=== PATIENT | male | born 1970 | race Caucasian/White ===

== ENCOUNTER 2021-02-12 07:52 | Inpatient (IN) | payer MEDICARE ==
[~2021-02-12] VITALS: Ht 182.9 cm; Wt 132.7 kg
[2021-02-24] MEDS ORDERED: DEXILANT60 MG PO (14:22)
[2021-02-24] MEDS ORDERED: GLUCOPHAGE500 MG PO (14:22)
[2021-02-24] MEDS ORDERED: BYSTOLIC2.5 MG (14:22)
[2021-02-24] MEDS ORDERED: LYRICA300 MG PO (14:23)
[2021-02-24] MEDS ORDERED: MULTI-DAY VITAM1 TAB PO (14:23)
[2021-02-24] MEDS ORDERED: PROZAC40 MG (14:23)
[2021-02-25 10:24] LABS: BILIRUBIN NEGATIVE (NEGATIVE); KETONE NEGATIVE (NEGATIVE); NITRITE NEGATIVE (NEGATIVE); UROBILINOGEN NORMAL mg/dL (< 2)
[2021-02-25 13:10] LABS: BASOPHILS 0.3 % (0-2); EOSINOPHILS 8.8 % (0-7); HEMATOCRIT 44.2 % (42.0-54.0); HEMOGLOBIN 15.2 g/dL (13.5-17.5); IMMATURE GRANULOCYTES 0.1 % (0-5); LYMPHOCYTE ABS# 1.75 10x3/uL (1.32-3.57); LYMPHOCYTES 26.2 % (15-50); MCH 28.5 pg (26.0-34.0); MCHC 34.4 g/dL (31.0-37.0); MCV 82.9 fL (80.0-100.0); MEAN PLATELET VOLUME 9.8 fL (7.4-10.4); MONOCYTES 7.3 % (2-11); NEUTROPHIL ABS# 3.81 10x3/uL (1.78-5.38); NEUTROPHILS 57.3 % (40-80); PLATELET COUNT 217 10x3/uL (130-400); RBC 5.33 10x6/uL (4.20-6.10); RDW 14.4 % (11.5-14.5); WBC 6.7 10x3/uL (4.8-10.8)
[2021-02-25 13:21] LABS: CALC OSMOLALITY 277 mosm/kg (275-300); CALCIUM 9.3 mg/dL (8.5-10.1); CARBON DIOXIDE 25.9 mmol/L (21.0-32.0); CHLORIDE - SERUM 100 mmol/L (98-107); CREATININE - SERUM 1.1 mg/dL (0.6-1.3); GLUCOSE 164 mg/dL (74-106); POTASSIUM - SERUM 4.4 mmol/L (3.5-5.1); SODIUM 135 mmol/L (136-145); UREA NITROGEN 24 mg/dL (7-18); eGFR NON AFRICAN AMERICAN 75 mL/min (90-120)
[2021-02-25 13:23] LABS: APTT 33.3 SECONDS (22.8-39.4); INR 1.07 (0.85-1.17); PROTIME 12.8 SECONDS (11.6-15.0)
[2021-03-02] VITALS (10 sets, daily range): BP systolic 74–130; BP diastolic 55–93; Ht 182.9 cm; Wt 132.7 kg
[2021-03-02] MEDS ORDERED: CYMBALTA60 MG PO (12:30)
[2021-03-02 14:35] LABS: BASOPHILS 0 % (0-2); EOSINOPHILS 0.7 % (0-7); HEMATOCRIT 38.7 % (42.0-54.0); HEMOGLOBIN 13.1 g/dL (13.5-17.5); IMMATURE GRANULOCYTES 0.4 % (0-5); LYMPHOCYTE ABS# 0.81 10x3/uL (1.32-3.57); LYMPHOCYTES 7.6 % (15-50); MCH 28.3 pg (26.0-34.0); MCHC 33.9 g/dL (31.0-37.0); MCV 83.6 fL (80.0-100.0); MEAN PLATELET VOLUME 9.6 fL (7.4-10.4); MONOCYTES 3.1 % (2-11); NEUTROPHIL ABS# 9.46 10x3/uL (1.78-5.38); NEUTROPHILS 88.2 % (40-80); PLATELET COUNT 207 10x3/uL (130-400); RBC 4.63 10x6/uL (4.20-6.10); RDW 14.7 % (11.5-14.5); WBC 10.7 10x3/uL (4.8-10.8)
[2021-03-02 14:56] LABS: ALBUMIN 3.4 g/dL (3.4-5.0); ANION GAP 11.1 mmol/L (8-16); BILIRUBIN - TOTAL 0.85 mg/dL (0.2-1.3); CALCIUM 7.9 mg/dL (8.5-10.1); CREATININE - SERUM 1.4 mg/dL (0.6-1.3); POTASSIUM - SERUM 5.1 mmol/L (3.5-5.1); PROTEIN - SERUM 6.6 g/dL (6.4-8.2)
--- NOTE | 2021-03-02 17:20 | NUR ---
pt continues to be pain free. bed alarm remains on. oxygen turned down to 1 L per nc. at bedside.
--- NOTE | 2021-03-02 18:55 | NUR ---
PATIENT RESTING IN BED WITH EYES CLOSED AND NO S/S OF DISTRESS. AT BEDSIDE. IV INFUSING TO PATIENT'S RIGHT HAND, NO SIGNS OF INFILTRATION. IRMA AND SCD HOSE IN PLACE. INCISION TO RIGHT HIP WITH DRESSING C/D/I. BED IN LOWEST POSITION AND CALL LIGHT IN REACH. ENCOURAGED PATIENT TO CALL WITH NEEDS.
[2021-03-03 01:06] VITALS: BP 108/61
[2021-03-03 05:23] VITALS: BP 119/61
--- NOTE | 2021-03-03 06:10 | NUR ---
REMOVED PATIENT'S CR CATH
[2021-03-03 06:35] LABS: BASOPHILS 0 % (0-2); EOSINOPHILS 0.5 % (0-7); HEMATOCRIT 33.8 % (42.0-54.0); HEMOGLOBIN 11.3 g/dL (13.5-17.5); IMMATURE GRANULOCYTES 0.4 % (0-5); LYMPHOCYTE ABS# 1.23 10x3/uL (1.32-3.57); LYMPHOCYTES 12.8 % (15-50); MCHC 33.4 g/dL (31.0-37.0); MCV 83.9 fL (80.0-100.0); MEAN PLATELET VOLUME 9.5 fL (7.4-10.4); MONOCYTES 8.1 % (2-11); NEUTROPHILS 78.2 % (40-80); PLATELET COUNT 222 10x3/uL (130-400); RBC 4.03 10x6/uL (4.20-6.10); WBC 9.6 10x3/uL (4.8-10.8)
[2021-03-03 06:48] LABS: ANION GAP 11.9 mmol/L (8-16); BILIRUBIN - TOTAL 0.32 mg/dL (0.2-1.3); CARBON DIOXIDE 25.3 mmol/L (21.0-32.0); CREATININE - SERUM 1.2 mg/dL (0.6-1.3); POTASSIUM - SERUM 4.2 mmol/L (3.5-5.1)
[2021-03-03 07:15] VITALS: BP 103/64
--- NOTE | 2021-03-03 07:30 | NUR ---
PT ASSESSED. NO COMPLAINTS OF PAIN AT PRESENT. STATES LITTLE BIT OF STINGING BUT NO PAIN. ENCOURAGED PT TO NOT LET PAIN GET OUT OF CONTROL. DRESSING TO LEFT GROIN CLEAN DRY AND INTACT WITH KATH DRAIN NOTED AND COMPLRESSED. BILAT IRMA HOSE AND SCDS ON. FALL ALARM ON. IV RIGHT HAND WITHOUT REDDNESS OR SWELLING NOTED. SPPOUSE AT BEDSIDE. CALL LIGHT IN REACH
--- NOTE | 2021-03-03 10:03 | NUR ---
pt ambulated in hallway and completed stairs with therapy. up in recliner at bedside with chair alarm on. refusing pain medication and ice at moment. states no pain. call light in reach
[2021-03-03 12:00] VITALS: BP 114/66
--- NOTE | 2021-03-03 13:21 | MORECARE ---
CASE MANAGEMENT DISCHARGE SUMMARY PATIENT: SWATI GANDARA UNIT: [id number] ADM DATE: 03/02/21 AGE: 50 : 68 SEX: M ROOM/BED: D.1211 AUTHOR: SIMA,DOC PHYSICIAN: REFERRING PHYSICIAN: ELISA ALVARENGA MD DATE OF SERVICE: 03/03/21 Case Management Discharge Planning Summary DCP REVIEW SUMMARY ANTICIPATED D/C DATE: 03/03/2021 EXPECTED LOS : 1 CASE STATUS: DCP Initiated INITIAL REVIEW: 03/02/2021 INITIAL REVIEWER: Lv Garcia FINAL DISCHARGE DISPOSITION: : FINAL REVIEWER: FINAL REVIEW DATE: DCP Focus Questions & Answers QUESTION: ANSWER : PATIENT: SWATI GANDARA ENCOUNTER: [id number] MEDICAL RECORD#: [id number] ADMISSION DATE: 03/02/2021 DISCHARGE DATE: ATTENDING MD: : AGE: 50 MARITAL STATUS: M DC PLAN ID: [id number] FACILITY: [facility] PRINTED ON: 03/03/21 13:21 CT All edits/amendments must be made on the electronic document DICTATION DATE: 03/03/21 132 GAUGER CHIEF: DM 03/03/21 1321 RPT#: [id number] DC DATE: STATUS: ADM IN [facility] [address] [place] [address] END OF REPORT
--- NOTE | 2021-03-03 13:58 | MORECARE ---
CASE MANAGEMENT DISCHARGE SUMMARY PATIENT: SWATI KASPER UNIT: [id number] ADM DATE: 03/02/21 AGE: 50 : 68 SEX: M ROOM/BED: D.1211 AUTHOR: SIMADOC PHYSICIAN: REFERRING PHYSICIAN: ELISA ALVARENGA MD DATE OF SERVICE: 03/03/21 Case Management Discharge Planning Summary COMMENTS ENTERED DATE: 03/03/21 13:45 CT COMMENT TYPE: Discharge Planning REVIEWER: Lv Garcia CM met with patient to complete DC plan and to evaluate needs. Patient lives independently with his spouse, Breanna Kasper, . Patient stated that his home is safe and has electricity and running water. Patient stated that he has no problems paying for medications and he fills his medications at [facility] in [place], [place]. Patient stated that his primary care physician is Dr. Aurelia Randhawa in the [facility]. At discharge, the patient plans to return home and feels this is a safe discharge. CM discussed availability of home health, rehab services, and medical equipment. Patient declined SNF, IPR, and DME. Patient has walker present in his room. Patient stated that he has a shower chair and BSC at home. Patient would like [facility] services, with [employer]. FABIANA signed and placed in chart. CM spoke with Za of [employer]. ZA stated that SOC can be determined once Clinical Documents are received. Clincal Documents faxed to . Patient voiced no other needs at this time and is satisfied with DC plan. Transportation provider at discharge will be with his spouse, Breanna. DC IMM delivered, explained, signed by the patient, and placed in chart. Signed form also left with the patient. CM will continue to follow and will assist as needed with dc plans/needs. DCP REVIEW SUMMARY ANTICIPATED D/C DATE: 03/03/2021 EXPECTED LOS : 1 CASE STATUS: DCP Initiated INITIAL REVIEW: 03/02/2021 INITIAL REVIEWER: Lv Garcia FINAL DISCHARGE DISPOSITION: : FINAL REVIEWER: FINAL REVIEW DATE: DCP Focus Questions & Answers DCP Evaluation QUESTION: ANSWER Patient and/or caregiver agree upon recommended discharge plan? : Yes Family / Caregiver's ability to cope with chronic illness: : a. Adequate (ability to meet patient's medical needs, ensures patient attends medical appts.) Patient's current cognitive status: : *Oriented to person, place, situation, time and present Patient's ability to cope with chronic illness : d. No chronic illness Patient gives permission to discuss discharge plans with: (name, relationship and number) : spouse, Breanna Kasper, Does the patient have the ability to pay for or attain post discharge needs / services? : Yes Functional screen assessment: : Basic needs can adequately be met by self Family / Caregiver's ability to cope with chronic illness: : a. Adequate (ability to meet patient's medical needs, ensures patient attends medical appts.) Physical Status: : Independent with ADL's Equipment needed for post hospitalization: : None Is there a likelihood that the patient will require additional services to return to the preadmission environment? : No Living Arrangements: : Home with Spouse/Significant Other Patient with capacity for self-care or can be cared for in same environment as prior to hospitalization? : Yes Baseline cognitive status: : *Oriented to person, place, situation, time and present Medication Management: : Patient states can read and understand medication labels Medication Management: : Patient states can afford medications Pharmacy name(s): : [facility] in [place], [place] Does Patient have transportation to get home and to follow-up medical appointments when discharged from the hospital? : Yes Would patient like to participate in any Care Coordination programs (if applicable): : Not applicable Does the patient have electricity at home? : Yes Does the patient have running water in their house? : Yes Equipment in use: : Walker - Rolling Equipment in use: : Shower Chair Equipment in use: : Bedside Commode Mental health screen: : No mental health history DCP Re-evaluation QUESTION: ANSWER Would patient like to participate in any Care Coordination programs (if applicable): : Not applicable PATIENT: SWATI KASPER ENCOUNTER: [id number] MEDICAL RECORD#: [id number] ADMISSION DATE: 03/02/2021 DISCHARGE DATE: ATTENDING MD: SUMI: AGE: 50 MARITAL STATUS: M DC PLAN ID: [id number] FACILITY: [facility] PRINTED ON: 03/03/21 13:58 CT All edits/amendments must be made on the electronic document DICTATION DATE: 03/03/211357 COMMUNITY COORDINATOR FOR HIGH SCHOOL: TENNILLE 03/03/21 135 RPT#: [id number] DC DATE: STATUS: ADM IN [facility] [address] [place] [address] END OF REPORT
[2021-03-03] MEDS ORDERED: PERCOCET 5-3251 TAB PO (15:10)
[2021-03-03] MEDS ORDERED: ELIQUIS2.5 MG PO (15:11)
--- NOTE | 2021-03-03 16:23 | MORECARE ---
CASE MANAGEMENT DISCHARGE SUMMARY PATIENT: SWATI KASPER UNIT: [id number] ADM DATE: 03/02/21 AGE: 50 : 68 SEX: M ROOM/BED: D.1211 AUTHOR: SIMADOC PHYSICIAN: REFERRING PHYSICIAN: ELISA ALVARENGA MD DATE OF SERVICE: 03/03/21 Case Management Discharge Planning Summary COMMENTS ENTERED DATE: 03/03/21 13:45 CT COMMENT TYPE: Discharge Planning REVIEWER: Lv Garcia CM met with patient to complete DC plan and to evaluate needs. Patient lives independently with his spouse, Breanna Kasper, . Patient stated that his home is safe and has electricity and running water. Patient stated that he has no problems paying for medications and he fills his medications at [facility] in [place], [place]. Patient stated that his primary care physician is Dr. Aurelia Randhawa in the [facility]. At discharge, the patient plans to return home and feels this is a safe discharge. CM discussed availability of home health, rehab services, and medical equipment. Patient declined SNF, IPR, and DME. Patient has walker present in his room. Patient stated that he has a shower chair and BSC at home. Patient would like [facility] services, with [employer]. FABIANA signed and placed in chart. CM spoke with Za of [employer]. ZA stated that SOC can be determined once Clinical Documents are received. Clincal Documents faxed to . Patient voiced no other needs at this time and is satisfied with DC plan. Transportation provider at discharge will be with his spouse, Breanna. DC IMM delivered, explained, signed by the patient, and placed in chart. Signed form also left with the patient. CM will continue to follow and will assist as needed with dc plans/needs. DCP REVIEW SUMMARY ANTICIPATED D/C DATE: 03/03/2021 EXPECTED LOS : 1 CASE STATUS: DCP Initiated INITIAL REVIEW: 03/02/2021 INITIAL REVIEWER: Lv Garcia FINAL DISCHARGE DISPOSITION: : FINAL REVIEWER: FINAL REVIEW DATE: DCP Focus Questions & Answers DCP Evaluation QUESTION: ANSWER Patient and/or caregiver agree upon recommended discharge plan? : Yes Family / Caregiver's ability to cope with chronic illness: : a. Adequate (ability to meet patient's medical needs, ensures patient attends medical appts.) Patient's current cognitive status: : *Oriented to person, place, situation, time and present Patient's ability to cope with chronic illness : d. No chronic illness Patient gives permission to discuss discharge plans with: (name, relationship and number) : spouse, Breanna Kasper, Does the patient have the ability to pay for or attain post discharge needs / services? : Yes Functional screen assessment: : Basic needs can adequately be met by self Family / Caregiver's ability to cope with chronic illness: : a. Adequate (ability to meet patient's medical needs, ensures patient attends medical appts.) Physical Status: : Independent with ADL's Equipment needed for post hospitalization: : None Is there a likelihood that the patient will require additional services to return to the preadmission environment? : No Living Arrangements: : Home with Spouse/Significant Other Patient with capacity for self-care or can be cared for in same environment as prior to hospitalization? : Yes Baseline cognitive status: : *Oriented to person, place, situation, time and present Medication Management: : Patient states can read and understand medication labels Medication Management: : Patient states can afford medications Pharmacy name(s): : [facility] in [place], [place] Does Patient have transportation to get home and to follow-up medical appointments when discharged from the hospital? : Yes Would patient like to participate in any Care Coordination programs (if applicable): : Not applicable Does the patient have electricity at home? : Yes Does the patient have running water in their house? : Yes Equipment in use: : Walker - Rolling Equipment in use: : Shower Chair Equipment in use: : Bedside Commode Mental health screen: : No mental health history DCP Re-evaluation QUESTION: ANSWER Would patient like to participate in any Care Coordination programs (if applicable): : Not applicable PATIENT: SWATI KASPER ENCOUNTER: [id number] MEDICAL RECORD#: [id number] ADMISSION DATE: 03/02/2021 DISCHARGE DATE: 03/03/2021 ATTENDING MD: SUMI: 1970 AGE: 50 MARITAL STATUS: M DC PLAN ID: [id number] FACILITY: [facility] PRINTED ON: 03/03/21 16:23 CT All edits/amendments must be made on the electronic document DICTATION DATE: 03/03/211622 FIELD CANE SCALER: TENNILLE 03/03/211622 RPT#: [id number] DC DATE:03/03/21 STATUS: DIS IN [facility] [address] [place] [address] END OF REPORT
--- NOTE | 2021-03-03 16:37 | MORECARE ---
CASE MANAGEMENT DISCHARGE SUMMARY PATIENT: SWATI KASPER UNIT: [id number] ADM DATE: 03/02/21 AGE: 50 : 68 SEX: M ROOM/BED: D.1211 AUTHOR: SIMADOC PHYSICIAN: REFERRING PHYSICIAN: ELISA ALVARENGA MD DATE OF SERVICE: 03/03/21 Case Management Discharge Planning Summary COMMENTS ENTERED DATE: 03/03/21 13:45 CT COMMENT TYPE: Discharge Planning REVIEWER: Lv Gacria CM met with patient to complete DC plan and to evaluate needs. Patient lives independently with his spouse, Breanna Kasper, . Patient stated that his home is safe and has electricity and running water. Patient stated that he has no problems paying for medications and he fills his medications at [facility] in [place], [place]. Patient stated that his primary care physician is Dr. Aurelia Randhawa in the [facility]. At discharge, the patient plans to return home and feels this is a safe discharge. CM discussed availability of home health, rehab services, and medical equipment. Patient declined SNF, IPR, and DME. Patient has walker present in his room. Patient stated that he has a shower chair and BSC at home. Patient would like [facility] services, with [employer]. FABIANA signed and placed in chart. CM spoke with Za of [employer]. ZA stated that SOC can be determined once Clinical Documents are received. Clincal Documents faxed to . Patient voiced no other needs at this time and is satisfied with DC plan. Transportation provider at discharge will be with his spouse, Breanna. DC IMM delivered, explained, signed by the patient, and placed in chart. Signed form also left with the patient. CM will continue to follow and will assist as needed with dc plans/needs. DCP REVIEW SUMMARY ANTICIPATED D/C DATE: 03/03/2021 EXPECTED LOS : 1 CASE STATUS: DCP Initiated INITIAL REVIEW: 03/02/2021 INITIAL REVIEWER: Lv Garcia FINAL DISCHARGE DISPOSITION: : FINAL REVIEWER: FINAL REVIEW DATE: DCP Focus Questions & Answers DCP Evaluation QUESTION: ANSWER Patient and/or caregiver agree upon recommended discharge plan? : Yes Family / Caregiver's ability to cope with chronic illness: : a. Adequate (ability to meet patient's medical needs, ensures patient attends medical appts.) Patient's current cognitive status: : *Oriented to person, place, situation, time and present Patient's ability to cope with chronic illness : d. No chronic illness Patient gives permission to discuss discharge plans with: (name, relationship and number) : spouse, Breanna Kasper, Does the patient have the ability to pay for or attain post discharge needs / services? : Yes Functional screen assessment: : Basic needs can adequately be met by self Family / Caregiver's ability to cope with chronic illness: : a. Adequate (ability to meet patient's medical needs, ensures patient attends medical appts.) Physical Status: : Independent with ADL's Equipment needed for post hospitalization: : None Is there a likelihood that the patient will require additional services to return to the preadmission environment? : No Living Arrangements: : Home with Spouse/Significant Other Patient with capacity for self-care or can be cared for in same environment as prior to hospitalization? : Yes Baseline cognitive status: : *Oriented to person, place, situation, time and present Medication Management: : Patient states can read and understand medication labels Medication Management: : Patient states can afford medications Pharmacy name(s): : [facility] in [place], [place] Does Patient have transportation to get home and to follow-up medical appointments when discharged from the hospital? : Yes Would patient like to participate in any Care Coordination programs (if applicable): : Not applicable Does the patient have electricity at home? : Yes Does the patient have running water in their house? : Yes Equipment in use: : Walker - Rolling Equipment in use: : Shower Chair Equipment in use: : Bedside Commode Mental health screen: : No mental health history DCP Re-evaluation QUESTION: ANSWER Would patient like to participate in any Care Coordination programs (if applicable): : Not applicable PATIENT: SWATI KASPER ENCOUNTER: [id number] MEDICAL RECORD#: [id number] ADMISSION DATE: 03/02/2021 DISCHARGE DATE: 03/03/2021 ATTENDING MD: SUMI: 1970- AGE: 50 MARITAL STATUS: M DC PLAN ID: [id number] FACILITY: [facility] PRINTED ON: 03/03/21 16:37 CT All edits/amendments must be made on the electronic document DICTATION DATE: 03/03/211636 LAWN MOWER REPAIRER: TENNILLE 03/03/211636 RPT#: [id number] DC DATE:03/03/21 STATUS: DIS IN [facility] [address] [place] [address] END OF REPORT
--- NOTE | 2021-03-04 14:50 | MORECARE ---
CASE MANAGEMENT DISCHARGE SUMMARY PATIENT: SWATI KASPER UNIT: [id number] ADM DATE: 03/02/21 AGE: 50 : 68 SEX: M ROOM/BED: D.1211 AUTHOR: CAROLYN GAO PHYSICIAN: REFERRING PHYSICIAN: ELISA ALVARENGA MD DATE OF SERVICE: 03/04/21 Case Management Discharge Planning Summary COMMENTS ENTERED DATE: 03/03/21 13:45 CT COMMENT TYPE: Discharge Planning REVIEWER: Lv Garcia CM met with patient to complete DC plan and to evaluate needs. Patient lives independently with his spouse, Breanna Kasper, . Patient stated that his home is safe and has electricity and running water. Patient stated that he has no problems paying for medications and he fills his medications at [facility] in [place], [place]. Patient stated that his primary care physician is Dr. Aurelia Randhawa in the [facility]. At discharge, the patient plans to return home and feels this is a safe discharge. CM discussed availability of home health, rehab services, and medical equipment. Patient declined SNF, IPR, and DME. Patient has walker present in his room. Patient stated that he has a shower chair and BSC at home. Patient would like [facility] services, with [employer]. FABIANA signed and placed in chart. CM spoke with Za of [employer]. ZA stated that SOC can be determined once Clinical Documents are received. Clincal Documents faxed to . Patient voiced no other needs at this time and is satisfied with DC plan. Transportation provider at discharge will be with his spouse, Breanna. DC IMM delivered, explained, signed by the patient, and placed in chart. Signed form also left with the patient. CM will continue to follow and will assist as needed with dc plans/needs. DCP REVIEW SUMMARY ANTICIPATED D/C DATE: 03/03/2021 EXPECTED LOS : 1 CASE STATUS: DCP Initiated INITIAL REVIEW: 03/02/2021 INITIAL REVIEWER: Lv Garcia FINAL DISCHARGE DISPOSITION: : FINAL REVIEWER: FINAL REVIEW DATE: DCP Focus Questions & Answers DCP Evaluation QUESTION: ANSWER Patient gives permission to discuss discharge plans with: (name, relationship and number) : spouse, Breanna Kasper, Patient's ability to cope with chronic illness : d. No chronic illness Patient's current cognitive status: : *Oriented to person, place, situation, time and present Family / Caregiver's ability to cope with chronic illness: : a. Adequate (ability to meet patient's medical needs, ensures patient attends medical appts.) Patient and/or caregiver agree upon recommended discharge plan? : Yes Physical Status: : Independent with ADL's Family / Caregiver's ability to cope with chronic illness: : a. Adequate (ability to meet patient's medical needs, ensures patient attends medical appts.) Functional screen assessment: : Basic needs can adequately be met by self Does the patient have the ability to pay for or attain post discharge needs / services? : Yes Living Arrangements: : Home with Spouse/Significant Other Is there a likelihood that the patient will require additional services to return to the preadmission environment? : No Equipment needed for post hospitalization: : None Baseline cognitive status: : *Oriented to person, place, situation, time and present Patient with capacity for self-care or can be cared for in same environment as prior to hospitalization? : Yes Medication Management: : Patient states can afford medications Medication Management: : Patient states can read and understand medication labels Pharmacy name(s): : [facility] in [place], [place] Does Patient have transportation to get home and to follow-up medical appointments when discharged from the hospital? : Yes Would patient like to participate in any Care Coordination programs (if applicable): : Not applicable Does the patient have electricity at home? : Yes Does the patient have running water in their house? : Yes Equipment in use: : Bedside Commode Equipment in use: : Shower Chair Equipment in use: : Walker - Rolling Mental health screen: : No mental health history DCP Re-evaluation QUESTION: ANSWER Would patient like to participate in any Care Coordination programs (if applicable): : Not applicable PATIENT: SWATI KASPER ENCOUNTER: [id number] MEDICAL RECORD#: [id number] ADMISSION DATE: 03/02/2021 DISCHARGE DATE: 03/03/2021 ATTENDING MD: SUMI: AGE: 50 MARITAL STATUS: M DC PLAN ID: [id number] FACILITY: [facility] PRINTED ON: 03/04/21 14:50 CT All edits/amendments must be made on the electronic document DICTATION DATE: 03/04/211449 COLD TYPE COMPOSING MACHINE OPERATOR: TENNILLE 03/04/211449 RPT#: [id number] DC DATE:03/03/21 STATUS: DIS IN [facility] [address] [facility] [place] [address] END OF REPORT
--- NOTE | 2021-03-05 09:34 | OP ---
PATIENT NAME: SWATI KASPER MEDICAL RECORD: [id number] :68 LOCATION:D. D.1211 ADMISSION DATE:03/02/21 SURGEON: ELISA ALVARENGA MD DATE OF OPERATION: 03/02/2021 PREOPERATIVE DIAGNOSIS: Posttraumatic arthritis, left hip. POSTOPERATIVE DIAGNOSIS: Posttraumatic arthritis, left hip. PROCEDURE PERFORMED: Left total hip arthroplasty. INDICATIONS FOR THE PROCEDURE: Mr. Kasper is a 50-year-old male with history of crush injury to the left lower extremity. He sustained a posterior hip dislocation with femoral head fracture, underwent ORIF of the femoral head at the time of the injury. He has subsequently developed posttraumatic arthritis with continued pain and limited mobility. He has elected to proceed with surgery for left total hip arthroplasty. Risks, benefits and alternatives of surgery were discussed with the patient and consent was obtained. DESCRIPTION OF PROCEDURE: The patient was met in the holding area where his identity and confirmation of the procedure was performed. Left lower extremity was marked. He was taken to the operating room where he was placed supine on the operating table and anesthesia was administered. He was then positioned on the [place] table. Extremities were positioned and padded appropriately. Left lower extremity was prepped and draped in a sterile fashion. The patient received preoperative antibiotics as well as TXA and a timeout was performed before initiating the case. On initiation of the case, an incision was made in line with the previous incision over the anterior hip and the scar from his previous excision was excised. A Styles-Otto approach was utilized for exposure. We continued our dissection deep down to the tensor fascia. The fascia was then split longitudinally and after dissecting through some scar tissue the interval between tensor and sartorius/rectus was identified for deep exposure. We continued our dissection deep to identify the lateral circumflex vessels. These were tagged and cauterized. We dissected down to the anterior hip capsule and placed retractors around the superior and inferior femoral neck. Fluoroscopic image was obtained to confirm this position. We then placed a retractor over the anterior brim of the acetabulum. Anterior capsule was excised. Retractors were repositioned around the femoral neck and our femoral neck cut was completed. The femoral head was removed with a corkscrew device. Retractors were repositioned around the acetabulum and tissue from around the circumference of the acetabulum and the floor of the acetabulum was debrided. The head was sized to a size 54. We began reaming with a size 45, reamed up sequentially to a size [address] a 54-mm cup. The cup was malleted into position and noted to have good fit. We confirmed this under fluoroscopy. The center cap was then placed. The liner was placed and tapped into position. We then turned our attention to the proximal femur. The leg was externally rotated and a hook was placed under the proximal femur. The leg was then taken into extension and adduction. Retractors were placed in the medial calcar and over the greater trochanter. We then began elevating the proximal femur as tissue was released from the shoulder until we were pleased with our exposure. We then began preparing the proximal femur using OrderGroove cutter followed by the canal finder. We then started with the size 4 broach, broached up sequentially to a size 15. We trialed this with the high offset neutral head and felt to have good stability. The hip was again dislocated and repositioned. Trial components were removed and the hip was irrigated thoroughly with saline. A OPERATIVE REPORT [id number] SWATI KASPER final components were placed. The hip was reduced and had good alignment on fluoroscopy, but was able to be subluxed to the edge of the liner once the final components were in place. We therefore dislocated again and trialled with a size +3 head and this had a much better fit and stability. Our final size +3 ceramic head was placed and tapped into position. The leg was reduced and again images showed good alignment of our components with near equal leg lengths. The hip was again shucked and would move 2-3 mm, but was not able to be subluxed and was much more stable. The wound was then irrigated thoroughly with saline. Joint solution was injected around the capsule of the proximal femur and acetabulum. The tensor fascia was closed with running Vicryl suture. Subcutaneous tissues were irrigated thoroughly with saline. A drain was placed extrafascial. Deep tissues were closed over the drain with Vicryl suture. Subcutaneous tissue was closed with Vicryl and the subcutaneous skin was closed with Monocryl. A Prineo Dermabond dressing was placed over the skin. This was covered with a sterile dressing. The patient was turned back over to anesthesia where he was awakened and taken to recovery room in stable condition. POSTOPERATIVE PLAN: The patient is going to be admitted for routine postoperative care. He will receive 24 hours of postoperative antibiotics, will be started on DVT prophylaxis tomorrow. Physical therapy will be consulted to assist with mobilization, weightbearing as tolerated, left lower extremity. PLAN: Home with home health. COMPLICATIONS: None. ESTIMATED BLOOD LOSS: 100 mL. ANESTHESIA: General. TRANSINT:[id number] Voice Confirmation ID: [id number] DOCUMENT ID: [id number] ELISA ALVARENGA MD at 0934 CC: [id number] DICTATION DATE: 03/02/21 1120 ORDER DISPATCHER: 03/02/21 1456 DIS IN 03/03/21 [id number] [place] [address]
== END 2021-03-03 16:19 | disposition home health service (06) | DRG 470 ==
LOC: D.SDCHOLD 03-02 07:30 → D.M3 03-02 12:10
PROVIDERS: Family Medicine; ADMIT Orthopaedic Surgery; ATTEND Orthopaedic Surgery
PROC: 0SRB0JZ Replacement of Left Hip Joint with Synthetic Substitute, Open Approach (ICD-10-PCS; principal; 2021-03-02 07:30)
DX: M16.52 Unilateral post-traumatic osteoarthritis, left hip (principal); I10 Essential (primary) hypertension; K21.9 Gastro-esophageal reflux disease without esophagitis; E11.65 Type 2 diabetes mellitus with hyperglycemia; E11.40 Type 2 diabetes mellitus with diabetic neuropathy, unspecified; G89.29 Other chronic pain; M54.9 Dorsalgia, unspecified; F41.9 Anxiety disorder, unspecified; F32.9 Major depressive disorder, single episode, unspecified; D64.9 Anemia, unspecified